=== PATIENT | male | born 1985 | race Caucasian/White ===

== ENCOUNTER 2019-10-16 08:04 | Emergency (ER) | payer MEDICAID ==
[~2019-10-16] VITALS: Ht 180.3 cm; Wt 88.9 kg
[2019-10-16 08:12] VITALS: BP 121/86; Ht 180.3 cm; Wt 88.9 kg
== END 2019-10-16 09:26 | disposition home or self-care (01) ==
LOC: ED 08:04
DX: S01.81XA Laceration without foreign body of other part of head, initial encounter (principal); S01.112A Laceration without foreign body of left eyelid and periocular area, initial encounter; V49.49XA Driver injured in collision with other motor vehicles in traffic accident, initial encounter; Y93.I9 Activity, other involving external motion; Y92.488 Other paved roadways as the place of occurrence of the external cause; Y99.8 Other external cause status
CPT/HCPCS: J2001

== ENCOUNTER 2019-10-18 10:42 | Emergency (ER) | payer SELFPAY ==
[~2019-10-18] VITALS: Ht 180.3 cm; Wt 87.1 kg
[2019-10-18 10:49] VITALS: Ht 180.3 cm; Wt 87.1 kg
[2019-10-18 12:54] VITALS: BP 126/81
== END 2019-10-18 12:54 | disposition home or self-care (01) ==
LOC: ED 10:42
DX: S01.112D Laceration without foreign body of left eyelid and periocular area, subsequent encounter (principal); S01.81XD Laceration without foreign body of other part of head, subsequent encounter; R07.89 Other chest pain; X58.XXXD Exposure to other specified factors, subsequent encounter

== ENCOUNTER 2019-10-21 09:51 | Emergency (ER) | payer SELFPAY ==
[~2019-10-21] VITALS: Ht 180.3 cm; Wt 88.5 kg
[2019-10-21 09:57] VITALS: BP 113/64; Ht 180.3 cm; Wt 88.5 kg
== END 2019-10-21 10:16 | disposition home or self-care (01) ==
LOC: ED 09:51
DX: S01.81XD Laceration without foreign body of other part of head, subsequent encounter (principal); X58.XXXD Exposure to other specified factors, subsequent encounter